=== PATIENT | female | born 1990 | race American Indian/Alaskan Native ===

== ENCOUNTER 2016-08-19 10:44 | Emergency (ER) | payer MEDICAID ==
[2016-08-19] MEDS ORDERED: CATAPRES PO ONE (15:17)
[2016-08-19] MEDS ORDERED: TORADOL IM ONE (15:17)
--- NOTE | 2016-08-19 17:08 | Emergency Department Report ---
HPI - General Chief Complaint: Dental/Oral Time Seen by Provider: 08/19/16 15:04 - HPI HPI: 26-year-old female presents today with right upper gum swelling 2 days. Denies history of similar symptoms. Describes her pain as a 7 or 10 constant, throbbing pain. Patient states her gum pain is causing her to have a headache. Denies trying any medication for pain relief. Denies fever, chills, nausea, vomiting, chest pain, shortness of breath, abdominal pain, visual changes, dizziness, confusion. Patient has history of hypertension but is noncompliant with medication. Patient states she hasn't taken her medication for over a week. ED Past Medical Hx - Past Medical History Hx Hypertension: Yes - Surgical History Past Surgical History?: No - Social History Smoking Status: Current Every Day Smoker Substance Use Type: None - Medications Home Medications: Home Medications Medication Instructions Recorded Confirmed Last Taken Type Acetaminophen/Codeine [Tylenol #3] 1 tab PO Q6H PRN #12 tab 08/19/16 Unknown Rx Penicillin Vk [Veetids TAB] 500 mg PO QID #56 tablet 08/19/16 Unknown Rx amLODIPine [Norvasc] 5 mg PO DAILY #30 tab 08/19/16 Unknown Rx ED Review of Systems ROS: Stated complaint: SWELLING IN MOUTH Other details as noted in HPI Constitutional: denies: chills, fever, malaise Eyes: denies: eye pain ENT: dental pain. denies: ear pain, throat pain, congestion Respiratory: denies: cough, shortness of breath, wheezing Cardiovascular: denies: chest pain, palpitations Endocrine: no symptoms reported Gastrointestinal: denies: abdominal pain, nausea, vomiting Neurological: headache. denies: weakness Physical Exam - Physical Exam Vital Signs: Vital Signs 08/19/16 08/19/16 08/19/16 11:02 15:51 16:38 Temperature 99.2 F Pulse Rate 87 85 87 Respiratory 18 16 Rate Blood Pressure 159/118 161/119 Blood Pressure 162/108 [Right] O2 Sat by Pulse 99 Oximetry Physical Exam: GENERAL: The patient is well-developed and well-nourished. Patient is in NAD. HEAD: Normocephalic. Atraumatic. EYES: PERRL. EARS: External auditory canals and tympanic membranes clear; hearing grossly intact. NOSE: Normal nasal mucosa with no nasal discharge. THROAT: No erythema, swelling or exudates. DENTAL: A small draining abscess noted over the gum of tooth #7. Positive for tooth caries. NECK: Supple, nontender, without lymphadenopathy. CHEST/LUNGS: Clear to auscultation throughout. HEART/CARDIOVASCULAR: Regular rate and rhythm. No murmurs, rubs or gallops. ABDOMEN: Abdomen is soft, nontender. No guarding or rebound tenderness. EXTREMITIES: Peripheral pulses intact. Capillary refill less than 2 seconds. ED Course Vital Signs 08/19/16 08/19/16 08/19/16 11:02 15:51 16:38 Temperature 99.2 F Pulse Rate 87 85 87 Respiratory 18 16 Rate Blood Pressure 159/118 161/119 Blood Pressure 162/108 [Right] O2 Sat by Pulse 99 Oximetry ED Medical Decision Making - Lab Data Vital Signs 08/19/16 08/19/16 08/19/16 11:02 15:51 16:38 Temperature 99.2 F Pulse Rate 87 85 87 Respiratory 18 16 Rate Blood Pressure 159/118 161/119 Blood Pressure 162/108 [Right] O2 Sat by Pulse 99 Oximetry 08/19/16 17:32 Temperature Pulse Rate 76 Respiratory 16 Rate Blood Pressure Blood Pressure 139/99 [Right] O2 Sat by Pulse Oximetry - Medical Decision Making 26-year-old female presents today with right gum swelling/pain and elevated blood pressure. Patient was given clonidine to lower her blood pressure and will be sent home on Norvasc. Patient is recommended to follow up with her primary care provider. Explained to patient that uncontrolled hypertension may lead to heart attack, stroke and even . Patient is in no acute distress at this time. She will be discharged home and is encouraged to follow up with a primary care provider and dentist. She will be sent home on penicillin VK, Tylenol 3 and Norvasc and is encouraged to return to the emergency room for any worsening symptoms. Critical care attestation.: If time is entered above; I have spent that time in minutes in the direct care of this critically ill patient, excluding procedure time. ED Disposition Clinical Impression: Tooth abscess Disposition: DISCHARGED TO HOME OR SELFCARE Is pt being admited?: No Does the pt Need Aspirin: No Condition: Stable Instructions: Dental Abscess (ED) Additional Instructions: Follow-up with primary care provider and dentist. Return to the emergency department if his symptoms worsen. Prescriptions: Acetaminophen/Codeine [Tylenol #3] 1 tab PO Q6H PRN #12 tab PRN Reason: Pain amLODIPine [Norvasc] 5 mg PO DAILY #30 tab Penicillin Vk [Veetids TAB] 500 mg PO QID #56 tablet Referrals: PRIMARY CARE,MD [Primary Care Provider] - 3-5 Days [facility] [Outside] - 3-5 Days [facility] [Outside] - 3-5 Days [facility] [Outside] - 3-5 Days Forms: Work/School Release Form(ED) Time of Disposition: 17:40
[2016-08-19 17:32] VITALS: BP 139/99
== END 2016-08-19 17:54 | disposition home or self-care (01) ==
LOC: ED 10:44
DX: K04.7 Periapical abscess without sinus (principal); I10 Essential (primary) hypertension; F17.200 Nicotine dependence, unspecified, uncomplicated
CPT/HCPCS: 96372; 99282; J1885

== ENCOUNTER 2017-01-03 12:19 | Emergency (ER) | payer MEDICAID ==
[2017-01-03] MEDS ORDERED: APRESOLINE IV ONE (13:04)
[2017-01-03] MEDS ORDERED: VALIUM IV ONE (13:04)
[2017-01-03 13:45] LABS: Anion Gap 17 mmol/L; BUN/Creatinine Ratio 6.66; Blood Urea Nitrogen 6 mg/dL (7-17); Calcium 9.1 mg/dL (8.4-10.2); Carbon Dioxide 24 mmol/L (22-30); Chloride 102.1 mmol/L (98-107); Glucose 84 mg/dL (65-100); Potassium 3.6 mmol/L (3.6-5.0); Sodium 139 mmol/L (137-145)
[2017-01-03 13:47] LABS: Basophils % (Auto) 0.6 % (0.0-1.8); Eosinophils % (Auto) 2.1 % (0.0-4.3); Hematocrit 42.8 % (30.3-42.9); Hemoglobin 13.9 gm/dl (10.1-14.3); Mean Corpuscular HGB Conc 32 % (30-34); Mean Corpuscular Hemoglobin 29 pg (28-32); Mean Corpuscular Volume 90 fl (79-97); Platelet Count 214 K/mm3 (140-440); Red Blood Count 4.73 M/mm3 (3.65-5.03); Red Cell Distribution Width 13.4 % (13.2-15.2); White Blood Count 10.2 K/mm3 (4.5-11.0)
[2017-01-03] MEDS ORDERED: TORADOL IV ONE (14:00)
[2017-01-03] MEDS ORDERED: NORMODYNE IV ONE (14:00)
--- NOTE | 2017-01-03 14:13 | Emergency Department Report ---
HPI - General Chief Complaint: High BP Time Seen by Provider: 01/03/17 13:00 - HPI HPI: This is a 26-year-old Afro[place] female presents to the emergency department from a urgent care clinic with complaint of severely elevated blood pressure. The patient went to the urgent care clinic originally for a 2 day history of left-sided lateral neck discomfort where she feels like she has a stiff neck and is unable to turn her head only to the left. However when she got there she had a systolic blood pressure was 200. The patient does have a history of hypertension and says she is on 3 different medications as they are "trying to find something that works." She denies any headache, vision change, slurred speech, chest pain, nausea, vomiting or diaphoresis. She has a primary care doctor but has not seen them regarding the symptoms. ED Past Medical Hx - Past Medical History Hx Hypertension: Yes - Social History Smoking Status: Light Tobacco Smoker Substance Use Type: None - Medications Home Medications: Home Medications Medication Instructions Recorded Confirmed Last Taken Type Acetaminophen/Codeine [Tylenol #3] 1 tab PO Q6H PRN #12 tab 08/19/16 Unknown Rx Penicillin Vk [Veetids TAB] 500 mg PO QID #56 tablet 08/19/16 Unknown Rx amLODIPine [Norvasc] 5 mg PO DAILY #30 tab 08/19/16 Unknown Rx ED Review of Systems ROS: Stated complaint: BP HIGH/FRIAS Other details as noted in HPI Comment: All other systems reviewed and negative Constitutional: denies: chills, fever Eyes: denies: eye pain, eye discharge, vision change ENT: denies: ear pain, throat pain Respiratory: denies: cough, shortness of breath, wheezing Cardiovascular: denies: chest pain, palpitations Genitourinary: denies: urgency, dysuria, discharge Musculoskeletal: denies: back pain, joint swelling Skin: denies: rash, lesions Neurological: denies: headache, weakness, paresthesias Physical Exam - Physical Exam Vital Signs: Vital Signs 01/03/17 01/03/17 01/03/17 12:32 12:40 12:45 Temperature 98.4 F Pulse Rate 87 73 Respiratory 13 13 9 L Rate Blood Pressure 194/127 211/145 O2 Sat by Pulse 100 100 99 Oximetry 06/03/17 06/03/17 06/03/17 13:00 13:16 13:30 Temperature Pulse Rate 69 67 93 H Respiratory 11 L 13 13 Rate Blood Pressure 201/138 181/122 174/112 O2 Sat by Pulse 97 95 Oximetry 01/03/17 01/03/17 01/03/17 13:31 13:45 14:05 Temperature Pulse Rate 87 101 H Respiratory 13 13 Rate Blood Pressure 194/127 199/110 O2 Sat by Pulse 97 Oximetry 01/03/17 14:07 Temperature Pulse Rate 101 H Respiratory Rate Blood Pressure 199/110 O2 Sat by Pulse Oximetry Physical Exam: GENERAL: The patient is well-developed well-nourished. HEENT: Normocephalic. Atraumatic. Extraocular motions are intact. Patient has moist mucous membranes. Pupils equal reactive to light bilaterally. No nystagmus. NECK: Supple. Trachea is midline. There is some reproducible left lateral cervical muscle tenderness but no obvious deformity. No midline tenderness or deformity or step-off. Patient has some restriction to left-sided rotation secondary to some discomfort. Full right-sided rotation without any difficulty. No problems with flexion or extension of the head and/or neck. CHEST/LUNGS: Clear to auscultation. There is no respiratory distress noted. HEART/CARDIOVASCULAR: Regular. There is no tachycardia. There is no gallop rub or murmur. ABDOMEN: Abdomen is soft, nontender. Patient has normal bowel sounds. There is no abdominal distention. SKIN: Skin is warm and dry. NEURO: The patient is awake, alert, and oriented. The patient is cooperative. The patient has no focal neurologic deficits. The patient has normal speech. MUSCULOSKELETAL: There is no tenderness or deformity. There is no limitation range of motion. There is no evidence of acute injury. ED Course Vital Signs 01/03/17 01/03/17 01/03/17 12:32 12:40 12:45 Temperature 98.4 F Pulse Rate 87 73 Respiratory 13 13 9 L Rate Blood Pressure 194/127 211/145 O2 Sat by Pulse 100 100 99 Oximetry 01/03/17 01/03/17 01/03/17 13:00 13:16 13:30 Temperature Pulse Rate 69 67 93 H Respiratory 11 L 13 13 Rate Blood Pressure 201/138 181/122 174/112 O2 Sat by Pulse 97 95 Oximetry 01/03/17 01/03/17 01/03/17 13:31 13:45 14:05 Temperature Pulse Rate 87 101 H Respiratory 13 13 Rate Blood Pressure 194/127 199/110 O2 Sat by Pulse 97 Oximetry 01/03/17 14:07 Temperature Pulse Rate 101 H Respiratory Rate Blood Pressure 199/110 O2 Sat by Pulse Oximetry ED Medical Decision Making - Lab Data Result diagrams: 01/03/17 13:09 01/03/17 13:09 - Medical Decision Making 26-year-old female presents from urgent care with very elevated blood pressure. She originally went to urgent care due to some left-sided neck pain and basically what was a crick in the neck. She does not have any visible cervical swelling. She does not have any headache or any neurological deficits. The patient was given a dose of muscle relaxant as well as a dose of hydralazine and her blood pressure came down slightly. She was given 1 dose of labetalol and the blood pressure came down to a much more reasonable level. Patient's symptoms have improved. She appears safe for discharge home at this time. She will follow-up with her primary care doctor on Thursday for any changes in her blood pressure regiment. Until that time we discussed dietary changes and lifestyle changes including staying away from foods that are high in salt, caffeinated products and staying away from any tobacco abuse. She will return to the ER with any worsening of her symptoms or any acute distress. - Differential Diagnosis muscle spasm, muscle strain, hypertensive urgency, accelerated hypertension Critical Care Time: No Critical care attestation.: If time is entered above; I have spent that time in minutes in the direct care of this critically ill patient, excluding procedure time. ED Disposition Clinical Impression: Neck pain, Muscle spasm, Hypertensive urgency Disposition: DISCHARGED TO HOME OR SELFCARE Is pt being admited?: No Condition: Stable Instructions: Hypertension (ED), Muscle Spasm (ED) Additional Instructions: Please follow-up with your primary care doctor Thursday without fail. Please try to stay away from foods that are high in salt and caffeinated products to help with her blood pressure. Please stay away from any tobacco products. Keep a blood pressure log. Return to the emergency department with any worsening of your symptoms or any acute distress. Referrals: PRIMARY CARE, [Primary Care Provider] - 24 Hours Time of Disposition: 14:55
[2017-01-03 14:55] VITALS: BP 112/54
== END 2017-01-03 15:05 | disposition home or self-care (01) ==
LOC: ED 12:19
DX: M54.2 Cervicalgia (principal); M62.838 Other muscle spasm; I16.0 Hypertensive urgency; F17.200 Nicotine dependence, unspecified, uncomplicated; I10 Essential (primary) hypertension
CPT/HCPCS: 36415; 80048; 84703; 85025; 96374; 96375; 99283; J0360; J1885; J3360

== ENCOUNTER 2019-12-25 18:22 | Emergency (ER) | payer MEDICAID ==
[2019-12-25 19:01] LABS: Basophils # (Auto) 0.1 K/mm3 (0.0-0.1); Basophils % (Auto) 0.7 % (0.0-1.8); Eosinophils # (Auto) 0.4 K/mm3 (0.0-0.4); Eosinophils % (Auto) 3.4 % (0.0-4.3); Hematocrit 37.9 % (30.3-42.9); Hemoglobin 12.6 gm/dl (10.1-14.3); Lymphocytes # (Auto) 2.5 K/mm3 (1.2-5.4); Mean Corpuscular HGB Conc 33 % (30-34); Mean Corpuscular Volume 92 fl (79-97); Monocytes # (Auto) 0.6 K/mm3 (0.0-0.8); Monocytes % (Auto) 5.4 % (0.0-7.3); Platelet Count 233 K/mm3 (140-440); Red Blood Count 4.12 M/mm3 (3.65-5.03); Red Cell Distribution Width 14.4 % (13.2-15.2)
[2019-12-25 19:07] LABS: Bacteria,Urine 1+ /HPF (Negative); Bilirubin,Urine NEG (Negative); Blood,Urine MOD (Negative); Color,Urine Yellow (Yellow); Mucus,Urine FEW /HPF; Protein,Urine <15 mg/dL mg/dL (Negative); Urobilinogen,Urine < 2.0 mg/dL (<2.0); WBC,Urine < 1.0 /HPF (0.0-6.0)
[2019-12-25 19:21] LABS: Alanine Aminotransferase 8 units/L (7-56); Albumin 3.9 g/dL (3.9-5); BUN/Creatinine Ratio 16; Blood Urea Nitrogen 11 mg/dL (7-17); Calcium 9.4 mg/dL (8.4-10.2); Hemolysis Index 23
--- NOTE | 2019-12-25 20:32 | Emergency Department Report ---
ED N/V/D HPI - General Chief complaint: Nausea/Vomiting/Diarrhea Stated complaint: VOMIT 4DAYS Time Seen by Provider: 12/25/19 19:42 Source: patient Mode of arrival: Ambulatory Limitations: No Limitations - History of Present Illness Initial comments: 29-year-old obese Afro-[place] female with a past medical history of hypertension who is been noncompliant with her medications recently presents emergency department complaining of a two-week history of nausea and dementia. And no menstrual period Since November 28 presents to the ED with a suspicion of . States she has not taken a home test has minimal pain but unfortunate her blood pressure has been elevated reports no headache no dizziness no blurred vision no chest pain no palpitation no shortness of breath no lower extremity swelling Location: diffuse Radiation: none Severity: mild Improves with: none Worsens with: none Associated Symptoms: denies: chest pain, cough, diaphoresis, loss of appetite, malaise, nausea/vomiting, shortness of breath, syncope - Related Data Previous Rx's Medication Instructions Recorded Last Taken Type Acetaminophen/Codeine [Tylenol #3] 1 tab PO Q6H PRN #12 tab 08/19/16 Unknown Rx Penicillin Vk [Veetids TAB] 500 mg PO QID #56 tablet 08/19/16 Unknown Rx amLODIPine [Norvasc] 5 mg PO DAILY #30 tab 08/19/16 Unknown Rx Doxylamine Succinate/Vit B6 1 each PO TID #20 tablet. 12/25/19 Unknown Rx [Osman Dupont 10-10 mg Tablet] Allergies Allergy/AdvReac Type Severity Reaction Status Date / Time No Known Allergies Allergy Unverified 06/17/16 09:11 ED Review of Systems ROS: Stated complaint: VOMIT 4DAYS Other details as noted in HPI Comment: All other systems reviewed and negative ED Past Medical Hx - Past Medical History Previous Medical History?: Yes Hx Hypertension: Yes - Surgical History Past Surgical History?: No - Social History Smoking Status: Current Every Day Smoker Substance Use Type: None - Medications Home Medications: Home Medications Medication Instructions Recorded Confirmed Last Taken Type Acetaminophen/Codeine [Tylenol #3] 1 tab PO Q6H PRN #12 tab 08/19/16 Unknown Rx Penicillin Vk [Veetids TAB] 500 mg PO QID #56 tablet 08/19/16 Unknown Rx amLODIPine [Norvasc] 5 mg PO DAILY #30 tab 08/19/16 Unknown Rx Doxylamine Succinate/Vit B6 1 each PO TID #20 tablet. 12/25/19 Unknown Rx [Osman Dupont 10-10 mg Tablet] ED Physical Exam - General Limitations: No Limitations General appearance: alert, in no apparent distress - Head Head exam: Present: atraumatic, normocephalic - Eye Eye exam: Present: normal appearance, PERRL, EOMI Pupils: Present: normal accommodation - ENT ENT exam: Present: normal exam, normal orophraynx, mucous membranes moist - Neck Neck exam: Present: normal inspection, full ROM - Respiratory Respiratory exam: Present: normal lung sounds bilaterally. Absent: respiratory distress, wheezes, rales, chest wall tenderness, accessory muscle use, prolonged expiratory - Cardiovascular Cardiovascular Exam: Present: regular rate, normal rhythm. Absent: systolic murmur, diastolic murmur, rubs, gallop - GI/Abdominal GI/Abdominal exam: Present: soft, normal bowel sounds. Absent: distended, tenderness, hyperactive bowel sounds, hypoactive bowel sounds, organomegaly - Extremities Exam Extremities exam: Present: normal inspection, full ROM, normal capillary refill - Back Exam Back exam: Present: normal inspection. Absent: CVA tenderness (R), CVA tenderness (L) - Neurological Exam Neurological exam: Present: alert, oriented X3, CN II-XII intact, normal gait - Psychiatric Psychiatric exam: Present: normal affect, normal mood - Skin Skin exam: Present: warm, dry, intact, normal color. Absent: rash ED Course Vital Signs 12/25/19 12/25/19 12/25/19 18:27 19:47 20:45 Temperature 98.1 F 98.9 F Pulse Rate 82 77 67 Respiratory 15 18 Rate Blood Pressure 192/133 205/136 Blood Pressure 189/123 [Left] O2 Sat by Pulse 100 100 Oximetry ED Medical Decision Making - Lab Data Result diagrams: 12/25/19 18:50 12/25/19 18:50 - Radiology Data Radiology results: report reviewed Print Report Referring Physician:GREGORIO MOTAPatient Name:STEPHEN KINSEYPatient ID:[id number] of :[id number]:FemaleAccession:[id number] Date:[id number] Status:Finalized Findings [address] [address] Ultrasound Report Signed Patient: STEPHEN KINSEY MR#: [id number] : 1990 Acct:[id number] Age/Sex: 29 / F ADM Date: 12/25/19 Loc: ED Attending Dr: Ordering Physician: MICHELLE CASTELLON Date of Service: 12/25/19 Procedure(s): US OB transvaginal Accession Number(s): [id number] cc: MICHELLE CASTELLON ULTRASOUND OBSTETRIC INDICATION / CLINICAL INFORMATION: Vaginal bleeding pain. Clinical Gestational Age (GA): 3 weeks 5 days TECHNIQUE: Transabdominal and Transvaginal. COMPARISON: None available. FINDINGS: GESTATIONAL SAC: Well-defined oval shape and intrauterine in location. YOLK SAC: No significant abnormality. EMBRYO/FETUS: No significant abnormality. - [place]-Rump Length = 1.9 cm = 8 weeks, 3 day(s). - Heart Rate, beats per minute (if present) = 167 ADNEXA: No significant abnormality. FREE FLUID: None. ADDITIONAL FINDINGS: Internally anechoic cystic area apparently within the umbilical cord is noted, measuring 0.7 x 0.4 cm IMPRESSION: 1. Single, living intrauterine with estimated sonographic age of 8 weeks, 3 day(s). Cystic area within the umbilical cord is noted; at minimum, this area should be reevaluated [facility]. Signer Name: Tru Yancey MD Signed: 12/25/2019 8:34 PM Workstation Name: [id number] Transcribed By: DMB Dictated By: Tru Yancey MD Electronically Authenticated By: Tru Yancey MD Signed Date/Time: 12/25/192033 DD/ 30 TD/TT: Critical care attestation.: If time is entered above; I have spent that time in minutes in the direct care of this critically ill patient, excluding procedure time. ED Disposition Clinical Impression: HTN (hypertension), Elevated serum hCG, Nausea & vomiting Disposition: DC-01 TO HOME OR SELFCARE Is pt being admited?: No Does the pt Need Aspirin: No Instructions: Hypertension (ED), Hyperemesis Gravidarum (ED), (ED) Additional Instructions: Please be sure to follow-up with your [facility] for further evaluation and management of your Prescriptions: Doxylamine Succinate/Vit B6 [Osman Dupont 10-10 mg Tablet] 1 each PO TID #20 tablet. Referrals: [facility] [Provider Group] - 3-5 Days
--- NOTE | 2019-12-25 20:38 | Ultrasound Report ---
ULTRASOUND OBSTETRIC INDICATION / CLINICAL INFORMATION: Vaginal bleeding pain. Clinical Gestational Age (GA): 3 weeks 5 days TECHNIQUE: Transabdominal and Transvaginal. COMPARISON: None available. FINDINGS: GESTATIONAL SAC: Well-defined oval shape and intrauterine in location. YOLK SAC: No significant abnormality. EMBRYO/FETUS: No significant abnormality. - [place]-Rump Length = 1.9 cm = 8 weeks, 3 day(s). - Heart Rate, beats per minute (if present) = 167 ADNEXA: No significant abnormality. FREE FLUID: None. ADDITIONAL FINDINGS: Internally anechoic cystic area apparently within the umbilical cord is noted, m easuring 0.7 x 0.4 cm IMPRESSION: 1. Single, living intrauterine with estimated sonographic age of 8 weeks, 3 day(s). Cystic area within the umbilical cord is noted; at minimum, this area should be reevaluated at routine follo w-up ultrasound. Signer Name: Tru Yancey MD Signed: 12/25/2019 8:34 PM Workstation Name: [id number]
--- NOTE | 2019-12-25 20:38 | Ultrasound Report ---
ULTRASOUND OBSTETRIC INDICATION / CLINICAL INFORMATION: Vaginal bleeding pain. Clinical Gestational Age (GA): 3 weeks 5 days TECHNIQUE: Transabdominal and Transvaginal. COMPARISON: None available. FINDINGS: GESTATIONAL SAC: Well-defined oval shape and intrauterine in location. YOLK SAC: No significant abnormality. EMBRYO/FETUS: No significant abnormality. - [place]-Rump Length = 1.9 cm = 8 weeks, 3 day(s). - Heart Rate, beats per minute (if present) = 167 ADNEXA: No significant abnormality. FREE FLUID: None. ADDITIONAL FINDINGS: Internally anechoic cystic area apparently within the umbilical cord is noted, m easuring 0.7 x 0.4 cm IMPRESSION: 1. Single, living intrauterine with estimated sonographic age of 8 weeks, 3 day(s). Cystic area within the umbilical cord is noted; at minimum, this area should be reevaluated at routine follo w-up ultrasound. Signer Name: Tru Yancey MD Signed: 12/25/2019 8:34 PM Workstation Name: [id number]
[2019-12-25 21:53] VITALS: BP 173/128
== END 2019-12-25 21:53 | disposition home or self-care (01) ==
LOC: ED 18:22
DX: O21.8 Other vomiting complicating pregnancy (principal); O02.81 Inappropriate change in quantitative human chorionic gonadotropin (hCG) in early pregnancy; O16.1 Unspecified maternal hypertension, first trimester; F17.200 Nicotine dependence, unspecified, uncomplicated; Z3A.08 8 weeks gestation of pregnancy; Z79.2 Long term (current) use of antibiotics; Z79.899 Other long term (current) drug therapy
CPT/HCPCS: 36415; 76801; 76817; 80053; 81001; 83690; 84702; 85025

== ENCOUNTER 2019-12-27 12:55 | Emergency (ER) | payer MEDICAID ==
[2019-12-27] MEDS ORDERED: NIFEdipine XL 30 MG TAB PO ONE (16:05)
--- NOTE | 2019-12-27 16:12 | Emergency Department Report ---
ED General Adult HPI - General Chief complaint: High BP Stated complaint: BLOOD PRESSURE PUI?: No Time Seen by Provider: 12/27/19 15:46 Source: patient, RN notes reviewed, old records reviewed Mode of arrival: Ambulatory Limitations: No Limitations - History of Present Illness Initial comments: This is a 29-year-old female. She is not known to myself previously. She has a history of chronic hypertension since 2017. She is poorly and intermittently compliant with amlodipine. She is 2, para 1. She was seen in this emergency room 2 days ago for nonspecific symptoms. She was found to have chronic hypertension, urinalysis did not show any proteinuria, liver function tests appeared to be within normal limits, and she was found to have an intrauterine . Today, she was seen by her outpatient SERVICE LIAISON REPRESENTATIVE doctor, Dr. Dang; [phone], and was, for uncertain and an unclear reasons, sent to the emergency room for asymptomatic hypertension. The patient reports she did not take her antihypertensive therapy today. She denies all physical pain at this time. She had mild nausea earlier on today. There is no lower extremity edema. At the moment, she does not have any complaints, and she denies fever, cough, coronavirus. Improves with: none Worsens with: none Associated Symptoms: denies other symptoms - Related Data Previous Rx's Medication Instructions Recorded Last Taken Type Doxylamine Succinate/Vit B6 1 each PO TID #20 tablet. 12/25/19 Unknown Rx [Osman Dupont 10-10 mg Tablet] NIFEdipine XL [Procardia Xl] 30 mg PO QDAY #30 tablet 12/27/19 Unknown Rx Allergies Allergy/AdvReac Type Severity Reaction Status Date / Time No Known Allergies Allergy Verified 12/27/19 13:29 ED Review of Systems ROS: Stated complaint: BLOOD PRESSURE Other details as noted in HPI Constitutional: denies: fever Eyes: denies: eye discharge ENT: denies: congestion Respiratory: denies: wheezing Cardiovascular: denies: chest pain Gastrointestinal: abdominal pain, nausea Genitourinary: denies: dysuria Musculoskeletal: as per HPI. denies: back pain Skin: as per HPI Neurological: denies: weakness Psychiatric: as per HPI Hematological/Lymphatic: as per HPI ED Past Medical Hx - Past Medical History Previous Medical History?: Yes Hx Hypertension: Yes - Surgical History Past Surgical History?: No - Social History Smoking Status: Never Smoker Substance Use Type: None - Medications Home Medications: Home Medications Medication Instructions Recorded Confirmed Last Taken Type Doxylamine Succinate/Vit B6 1 each PO TID #20 tablet. 12/25/19 Unknown Rx [Osman Dupont 10-10 mg Tablet] NIFEdipine XL [Procardia Xl] 30 mg PO QDAY #30 tablet 12/27/19 Unknown Rx ED Physical Exam - General Limitations: No Limitations General appearance: alert, in no apparent distress - Head Head exam: Present: atraumatic, normocephalic - Eye Eye exam: Present: normal appearance, EOMI. Absent: nystagmus - ENT ENT exam: Present: normal exam, normal orophraynx, mucous membranes moist, normal external ear exam - Neck Neck exam: Present: normal inspection, full ROM. Absent: tenderness, meningismus - Respiratory Respiratory exam: Present: normal lung sounds bilaterally. Absent: respiratory distress - Cardiovascular Cardiovascular Exam: Present: regular rate, normal rhythm, normal heart sounds. Absent: bradycardia, tachycardia, irregular rhythm, systolic murmur, diastolic murmur, rubs, gallop - GI/Abdominal GI/Abdominal exam: Present: soft. Absent: distended, tenderness, guarding, rebound, rigid, pulsatile mass - Extremities Exam Extremities exam: Present: normal inspection, full ROM, other (2+ pulses noted in the bilateral upper and lower extremities. There is no palpable cord. negative Homans sign. Muscular compartments are soft. The pelvis is stable.). Absent: pedal edema, calf tenderness - Back Exam Back exam: Present: normal inspection, full ROM. Absent: tenderness, CVA tenderness (R), CVA tenderness (L), paraspinal tenderness, vertebral tenderness - Neurological Exam Neurological exam: Present: alert, oriented X3, normal gait, other (No facial droop. Tongue midline. Extraocular movements intact bilaterally. Facial sensation intact to light touch in V1, V2, V3 distribution bilaterally. 5 and a 5 strength in 4 extremities. Sensation intact to light touch in 4 extremities.). Absent: motor sensory deficit - Psychiatric Psychiatric exam: Present: normal affect, normal mood - Skin Skin exam: Present: warm, dry, intact, normal color. Absent: rash ED Course Vital Signs 12/27/19 13:27 Temperature 98.1 F Pulse Rate 81 Respiratory 19 Rate Blood Pressure 189/120 O2 Sat by Pulse 100 Oximetry ED Medical Decision Making - Lab Data Vital Signs 12/27/19 13:27 Temperature 98.1 F Pulse Rate 81 Respiratory 19 Rate Blood Pressure 189/120 O2 Sat by Pulse 100 Oximetry - Radiology Data Radiology results: report reviewed, image reviewed Ultrasound from 2 days ago is reviewed and and appreciate - Medical Decision Making Differential diagnosis, including but not limited to: Chronic hypertension, , noncompliance Assessment and plan: 29-year-old female with known hypertension, documented at this hospital since 2017. She is afebrile, with reassuring vital signs, and no acute distress at this time, with the exception of hypertension, with a blood pressure of 177/109. From a gestational perspective, her history, physical, laboratory studies and imaging studies are not consistent with preeclampsia. We will discontinue her amlodipine, and initiate nifedipine. As a courtesy, we paged out to her private SERVICE LIAISON REPRESENTATIVE doctor, Dr. Dang, to discuss her previous laboratory studies, ultrasound findings, and physical exam findings, as well as chronic hypertension, however, we were not able to reach Sim Dang on the telephone. However, this phone call is a courtesy phone call, and for my purposes, I do not require an emergent obstetrics consultation for her chronic hypertension. We will discontinue amlodipine, and initiate nifedipine. Counseled patient that she would need to closely follow-up with her outpatient SERVICE LIAISON REPRESENTATIVE doctor, and depending on their preference, continue to follow-up with them, or consult with outpatient highway maintenance technician. I will defer to her SERVICE LIAISON REPRESENTATIVE to make that recommendation. Please reference the [employer] clinical policy on chronic asymptomatic hypertension. Patient also given copies of her laboratory studies, ultrasound to take with her for recordkeeping. I informed the patient that I would be very happy to speak to her SERVICE LIAISON REPRESENTATIVE physician if Dr. Dang elects to call me back. Critical care attestation.: If time is entered above; I have spent that time in minutes in the direct care of this critically ill patient, excluding procedure time. ED Disposition Clinical Impression: Elevated blood pressure reading, Incidental Disposition: - TO HOME OR SELFCARE Is pt being admited?: No Does the pt Need Aspirin: No Condition: Stable Additional Instructions: Discontinue amlodipine medication. Instead, initiate nifedipine medication as prescribed. Follow-up within 3 to 5 days with your outpatient SERVICE LIAISON REPRESENTATIVE doctor for repeat blood pressure check and evaluation. Avoid consumption of stimulants, caffeine, energy drinks. Avoid consumption of caffeine, Coca-Cola, tea, and coffee. Do not take Motrin, ibuprofen, Naprosyn, Aleve. Avoid consumption of heavy and/or spicy food. It is very important to closely follow-up with your outpatient SERVICE LIAISON REPRESENTATIVE doctor, or primary care doctor to monitor blood pressure. Hypertension in does put the patient at risk for complications, including preeclampsia, which may lead to disability, paralysis, loss of quality of life, or in extreme situations, or termination of the . Your SERVICE LIAISON REPRESENTATIVE doctor may elect to gradually increase your antihypertensive medication. Please return to the emergency room right away with new pain, worsened pain, migration of pain, projectile vomiting, change in mental status, confusion, inability to tolerate liquid feeds, new, worsened or different symptoms not present on the initial emergency room evaluation. Referrals: [facility] [Provider Group] - 3-5 Days [facility] [Provider Group] - 3-5 Days [facility]PRESENTAT[facility] [Provider Group] - 3-5 Days
[2019-12-27 16:32] VITALS: BP 193/134
== END 2019-12-27 17:02 | disposition home or self-care (01) ==
LOC: ED 12:55
DX: I10 Essential (primary) hypertension (principal); Z33.1 Pregnant state, incidental; Z79.899 Other long term (current) drug therapy
CPT/HCPCS: 99282

== ENCOUNTER 2020-01-31 08:58 | Emergency (ER) | payer MEDICAID ==
--- NOTE | 2020-01-31 10:42 | Event Note ---
ED Screening Note ED Screening Note: 14 WEEKS PREG RLQ PAIN NO DYSURIA NO DC NO BLEEDING ALSO, CO CHEST PAIN ST CAREY This initial assessment/diagnostic orders/clinical plan/treatment(s) is/are subject to change based on patients health status, clinical progression and re- assessment by fellow clinical providers in the ED. Further treatment and workup at subsequent clinical providers discretion. Patient/guardian urged not to elope from the ED as their condition may be serious if not clinically assessed and managed. Initial orders include: ACC
[2020-01-31 11:15] LABS: Bilirubin,Urine NEG (Negative); Blood,Urine MOD (Negative); Color,Urine Yellow (Yellow); Mucus,Urine 1+ /HPF; Protein,Urine <15 mg/dL mg/dL (Negative); Urobilinogen,Urine < 2.0 mg/dL (<2.0)
--- NOTE | 2020-01-31 11:31 | Emergency Department Report ---
ED Female HPI - General Chief complaint: Abdominal Pain Stated complaint: CHEST PAIN Time Seen by Provider: 01/31/20 10:40 Source: patient Mode of arrival: Ambulatory Limitations: No Limitations - History of Present Illness Initial comments: 30-year-old female with no significant past medical history who is currently 14 weeks presents to the ER today complaining of lower abdominal pain and chest pain. Patient states that around 5 AM this morning she started with intermittent lower cramping abdominal pain. Patient reports that she has no ticed that for the past 2 days she has not noticed much movement and with the abdominal pain this morning she became concerned. She denies any abdominal pain currently. She states that she did call the DURABLE MEDICAL EQUIPMENT REPAIRER yesterday but they did not return her call and so she decided to come here to get it evaluated. Patient states that she also woke up at 5 AM this morning with diffuse anterior chest pain which she describes as a burning/sharp pain. She states that it was mild and only lasted a few minutes. She denies any pain currently. She denied any associated shortness of breath, cough or wheezing. She states her mom told her it likely could be reflux which she has had during her but she states she did not know what to take for it. She denies any nausea, vomiting, fever, chills, calf pain or leg swelling. She denies any abnormal vaginal discharge, UTI symptoms or any abnormal vaginal bleeding. She is . Complaint: pelvic pain -: Sudden (today ) - Related Data Previous Rx's Medication Instructions Recorded Last Taken Type Doxylamine Succinate/Vit B6 1 each PO TID #20 tablet. 12/25/19 Unknown Rx [Osman Dupont 10-10 mg Tablet] NIFEdipine XL [Procardia Xl] 30 mg PO QDAY #30 tablet 12/27/19 Unknown Rx Allergies Allergy/AdvReac Type Severity Reaction Status Date / Time No Known Allergies Allergy Verified 12/27/19 13:29 ED Review of Systems ROS: Stated complaint: CHEST PAIN Other details as noted in HPI Comment: All other systems reviewed and negative Constitutional: denies: chills, fever Respiratory: denies: cough, shortness of breath, wheezing Cardiovascular: chest pain. denies: palpitations Gastrointestinal: abdominal pain. denies: nausea, diarrhea Genitourinary: denies: urgency, dysuria, discharge Musculoskeletal: denies: back pain, joint swelling, arthralgia Skin: denies: rash, lesions Neurological: denies: headache, weakness, paresthesias Psychiatric: denies: anxiety, depression ED Past Medical Hx - Past Medical History Previous Medical History?: Yes Hx Hypertension: Yes - Surgical History Past Surgical History?: No - Social History Smoking Status: Never Smoker Substance Use Type: None - Medications Home Medications: Home Medications Medication Instructions Recorded Confirmed Last Taken Type Doxylamine Succinate/Vit B6 1 each PO TID #20 tablet. 12/25/19 Unknown Rx [Diclegis Dr 10-10 mg Tablet] NIFEdipine XL [Procardia Xl] 30 mg PO QDAY #30 tablet 12/27/19 Unknown Rx ED Physical Exam - General Limitations: No Limitations General appearance: alert, in no apparent distress - Head Head exam: Present: atraumatic, normocephalic, normal inspection - Respiratory Respiratory exam: Present: normal lung sounds bilaterally. Absent: respiratory distress, wheezes, rales - Cardiovascular Cardiovascular Exam: Present: regular rate, normal rhythm, normal heart sounds - GI/Abdominal GI/Abdominal exam: Present: soft, distended (consistent with gravid abdomen), tenderness. Absent: guarding, rebound - Extremities Exam Extremities exam: Present: normal inspection. Absent: full ROM, tenderness, pedal edema, calf tenderness - Neurological Exam Neurological exam: Present: alert, oriented X3, CN II-XII intact - Psychiatric Psychiatric exam: Present: normal affect, normal mood - Skin Skin exam: Present: intact ED Course Vital Signs 01/31/20 09:02 Temperature 98.5 F Pulse Rate 100 H Respiratory 16 Rate Blood Pressure 139/69 O2 Sat by Pulse 99 Oximetry ED Medical Decision Making - EKG Data EKG shows normal: sinus rhythm Rate: normal (82) - EKG Data Interpretation: no acute changes, normal EKG - Radiology Data Radiology results: report reviewed - Medical Decision Making Patient who is currently 14 weeks presented to the ER today complaining of chest pain and lower abdominal pain. Patient reported that around 5 AM this morning she started with is burning sharp chest pain which lasted only a brief period of time without any associated shortness of breath, dizziness lightheadedness or syncope or cough. She also has no calf swelling or calf pain. She wanted to try something for indigestion but did not know what to take. She also had intermittent abdominal pain this morning which had resolved by the time she got to the ER. Patient states that she has not been feeling the baby move for the past 2 days and so the main reason she came to the ER was because she was concerned about that. She had called her D[facility]ABLE MEDICAL EQUIPMENT REPAIRER but was not hearing from them. She reported no vaginal symptoms or UTI symptoms. Patient is well-appearing, nontoxic, she is not in any acute distress. She has a soft nontender abdomen. EKG reviewed and is normal. Her vital signs are also within normal limits. Patient without any chest pain or abdominal pain at this time. Ultrasound reviewed, reassured patient that her is progressing along normally. I suspect her chest burining from this morning is probably reflux related. She is not tachycardia hypoxic or tachypneic. She has no calf pain or or swelling. Very low suspicion for ACS or PE at this time. I did discu ss results with patient. Discussed suspected dx and treatment plan with her. But informed her that if her symptoms worsened to return to ED immediately. Critical care attestation.: If time is entered above; I have spent that time in minutes in the direct care of this critically ill patient, excluding procedure time. ED Disposition Clinical Impression: 14 weeks gestation of , Abdominal pain during in second trimester, Atypical chest pain Disposition: DC-01 TO HOME OR SELFCARE Is pt being admited?: No Does the pt Need Aspirin: No Condition: Stable Instructions: Chest Pain (ED), Gastroesophageal Reflux Disease (ED), Abdominal Pain (ED) Additional Instructions: I recommend you follow-up with your DURABLE MEDICAL EQUIPMENT REPAIRER as scheduled. You can take Tylenol if your pain recurs. I recommend that you take Tums which can help with any reflux or indigestion. If your abdominal pain worsens and you start having any bleeding or abnormal discharge or passage of tissue or if your chest pain starts again and is worse with associated shortness of breath, dizziness, or syncope return to the ER. Referrals: PRIMARY CARE, [Primary Care Provider] - 3-5 Days Time of Disposition: 13:53
--- NOTE | 2020-01-31 13:33 | Ultrasound Report ---
ULTRASOUND OB LESS THAN 14 WEEKS FETUS HISTORY: Lower abdominal pain, no movement TECHNIQUE: Transabdominal ultrasound COMPARISON: 12/25/2019 FINDINGS: A single intrauterine is identified in cephalic position. heart rate measures 148 bpm . The placenta is anterior, grade 0. Amniotic fluid volume appears within normal limits. biometry measurements correlate with a 14 week 0 day . No acute abnormality is detected. IMPRESSION: Viable single intrauterine as described. Signer Name: Dane Barbour Jr, MD Signed: 01/31/2020 1:28 PM Workstation Name: [id number]
[2020-01-31 14:04] VITALS: BP 162/119
== END 2020-01-31 14:04 | disposition home or self-care (01) ==
LOC: ED 08:58
DX: O26.891 Other specified pregnancy related conditions, first trimester (principal); R10.30 Lower abdominal pain, unspecified; R07.89 Other chest pain; I10 Essential (primary) hypertension; Z79.899 Other long term (current) drug therapy; Z3A.14 14 weeks gestation of pregnancy
CPT/HCPCS: 76801; 76805; 81001; 93005

== ENCOUNTER 2020-05-02 16:45 | Outpatient (CLI) | payer MEDICAID ==
[2020-05-02] MEDS ORDERED: LACTATED RINGERS 1,000 ML IV SCH (19:00)
[2020-05-02 19:33] VITALS: BP 127/83
[2020-05-02 19:38] LABS: Bacteria,Urine 1+ /HPF (Negative); Bilirubin,Urine NEG (Negative); Blood,Urine SM (Negative); Color,Urine Straw (Yellow); Protein,Urine <15 mg/dL mg/dL (Negative); Urobilinogen,Urine < 2.0 mg/dL (<2.0)
[2020-05-02] MEDS ORDERED: LIDOCAINE-MPF (1%) 10 MG/1 ML VIAL 5 ML INFILTRATI ONE (19:50)
[2020-05-02 23:37] LABS: Bacteria,Urine 1+ /HPF (Negative); Bilirubin,Urine NEG (Negative); Blood,Urine SM (Negative); Color,Urine Yellow (Yellow); Protein,Urine <15 mg/dL mg/dL (Negative); Urobilinogen,Urine < 2.0 mg/dL (<2.0)
== END 2020-05-02 20:19 | disposition home or self-care (01) ==
LOC: APU 16:45 → TRG 16:45
PROVIDERS: ATTEND Obstetrics & Gynecology
DX: O26.892 Other specified pregnancy related conditions, second trimester (principal); R10.9 Unspecified abdominal pain; O10.012 Pre-existing essential hypertension complicating pregnancy, second trimester; Z3A.27 27 weeks gestation of pregnancy; Z87.891 Personal history of nicotine dependence
CPT/HCPCS: 81001; 96372; J0696

== ENCOUNTER 2020-05-15 07:24 | Outpatient (CLI) | payer MEDICAID ==
[2020-05-15] MEDS ORDERED: LACTATED RINGERS 500 ML IV ONE (10:07)
[2020-05-15 10:10] VITALS: BP 133/92
[2020-05-15 10:38] LABS: Bilirubin,Urine NEG (Negative); Blood,Urine SM (Negative); Color,Urine Yellow (Yellow); Mucus,Urine FEW /HPF; Protein,Urine <15 mg/dL mg/dL (Negative); Urobilinogen,Urine < 2.0 mg/dL (<2.0)
== END 2020-05-15 10:55 | disposition home or self-care (01) ==
LOC: APU 07:24 → TRG 07:24
PROVIDERS: ATTEND Obstetrics & Gynecology
DX: O26.893 Other specified pregnancy related conditions, third trimester (principal); R10.30 Lower abdominal pain, unspecified; Z3A.29 29 weeks gestation of pregnancy
CPT/HCPCS: 59025; 81001

== ENCOUNTER 2020-06-08 11:36 | Outpatient (CLI) | payer MEDICAID ==
[2020-06-08 12:41] LABS: Bilirubin,Urine NEG (Negative); Blood,Urine SM (Negative); Color,Urine Yellow (Yellow); Mucus,Urine FEW /HPF
[2020-06-08] MEDS ORDERED: LACTATED RINGERS 1,000 ML IV SCH (13:00)
[2020-06-08 13:08] VITALS: BP 118/84
== END 2020-06-08 13:20 | disposition home or self-care (01) ==
LOC: TRG 11:36 → APU 11:37 → TRG 13:20
PROVIDERS: ATTEND Obstetrics & Gynecology
DX: O26.893 Other specified pregnancy related conditions, third trimester (principal); R10.9 Unspecified abdominal pain; Z3A.32 32 weeks gestation of pregnancy
CPT/HCPCS: 59025; 81001

== ENCOUNTER 2020-06-15 14:21 | Outpatient (CLI) | payer MEDICAID ==
[2020-06-15 17:14] LABS: Hematocrit 33.4 % (30.3-42.9); Hemoglobin 11.2 gm/dl (10.1-14.3); Mean Corpuscular HGB Conc 34 % (30-34); Mean Corpuscular Volume 89 fl (79-97); Platelet Count 200 K/mm3 (140-440); Red Blood Count 3.73 M/mm3 (3.65-5.03); Red Cell Distribution Width 13.6 % (13.2-15.2)
[2020-06-15 17:19] LABS: Alanine Aminotransferase 82 units/L (7-56)
[2020-06-15 17:24] LABS: Bilirubin,Urine NEG (Negative); Blood,Urine SM (Negative); Color,Urine Yellow (Yellow); Mucus,Urine 3+ /HPF
[2020-06-15] MEDS ORDERED: ACETAMINOPHEN 500 MG TAB PO ONE (17:50)
[2020-06-15 18:45] VITALS: BP 134/94
== END 2020-06-15 19:18 | disposition home or self-care (01) ==
LOC: TRG 14:21 → APU 14:25 → TRG 19:18
PROVIDERS: ATTEND Obstetrics & Gynecology
DX: O13.3 Gestational [pregnancy-induced] hypertension without significant proteinuria, third trimester (principal); Z3A.33 33 weeks gestation of pregnancy
CPT/HCPCS: 36415; 59025; 81001; 82565; 83615; 84450; 84460; 84550; 85027; 87086

== ENCOUNTER 2020-07-09 19:36 | Inpatient (IN) | payer MEDICAID ==
[2020-07-09] MEDS ORDERED: ONDANSETRON 4 MG/2 ML INJ IV PRN (21:17)
[2020-07-09] MEDS ORDERED: BUTORPHANOL 2 MG/1 ML INJ IV PRN (21:17)
[2020-07-09] MEDS ORDERED: DINOPROSTONE 10 MG VAG SUPP VG ONE (21:17)
[2020-07-09] MEDS ORDERED: TERBUTALINE 1 MG/1 ML INJ SUB-Q PRN (21:17)
[2020-07-09] MEDS ORDERED: MINERAL OIL 30 ML ORAL LIQD PO PRN (21:17)
[2020-07-09] MEDS ORDERED: ePHEDrine SULFATE 50 MG/1 ML INJ IV PRN (21:17)
[2020-07-09] MEDS ORDERED: LIDOCAINE (2%) 20 MG/1 ML VIAL 20 ML MDV INFILTRATI ONE (21:17)
[2020-07-09 21:47] LABS: Hematocrit 33.7 % (30.3-42.9); Hemoglobin 11.3 gm/dl (10.1-14.3); Mean Corpuscular HGB Conc 33 % (30-34); Mean Corpuscular Volume 89 fl (79-97); Platelet Count 205 K/mm3 (140-440); Red Blood Count 3.79 M/mm3 (3.65-5.03); Red Cell Distribution Width 13.7 % (13.2-15.2)
[2020-07-09] MEDS: LACTATED RINGERS 1,000 ML IV SCH (21:55)
[2020-07-09] MEDS ORDERED: OXYTOCIN DRIP 30 UNITS/500 ML BAG IV SCH ×2 (22:00)
[2020-07-09 22:04] LABS: Alanine Aminotransferase 31 units/L (7-56); Uric Acid 4.3 mg/dL (3.5-7.6)
[2020-07-10] MEDS: LACTATED RINGERS 1,000 ML IV SCH ×3 (05:58→21:54)
--- NOTE | 2020-07-10 08:39 | History and Physical Report ---
History of Present Illness Date of examination: 07/10/20 Date of admission: 07/09/20 19:36 Chief complaint: Scheduled Induction of Labor History of present illness: Pt is a 30 year old -[place] ANG[place] 07/30/20 at 37w1d who presents for scheduled induction of labor secondary to chronic hypertension on labetalol 100 mg BID. She denies contractions, vaginal bleeding or leakage of fluid. She has had care at [facility] since 13 wks complicated by chronic hypertension, EIF, genital herpes without lesion or prodrome. She is GBS Negative. Pt received cervidil overnight. 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 Family/Genetic History: diabetes, hypertension Social history: no significant social history - Obstetrical History Expected Date of Delivery: 07/30/20 Actual Gestation: 37 Week(s) 1 Day(s) : 2 Para: 1 Hx # Term Pregnancies: 1 Number of Pregnancies: 0 Spontaneous Abortions: 0 Induced : 0 Number of Living Children: 1 Medications and Allergies Allergies Allergy/AdvReac Type Severity Reaction Status Date / Time No Known Allergies Allergy Verified 05/02/20 17:29 Home Medications Medication Instructions Recorded Confirmed Last Taken Type Labetalol 100mg TAB 100 mg PO DAILY 07/09/20 07/09/20 07/09/20 17:00 History 1 Active Meds: Active Medications Butorphanol Tartrate (Stadol) 2 mg IV Q2H PRN PRN Reason: Pain , Severe (7-10) Ephedrine Sulfate (Ephedrine Sulfate) 10 mg IV Q2M PRN PRN Reason: Hypotension Fentanyl (Sublimaze) 100 mcg IV Q2H PRN PRN Reason: Pain,Severe (7-10) LABOR PAIN Oxytocin/Sodium Chloride (Pitocin/Ns 30 Unit/500ml) 30 units in 500 mls @ 2 mls/hr IV TITR MARIA L; Protocol Lactated Ringer's (Lactated Ringers) 1,000 mls @ 125 mls/hr IV DIRECT MARIA L Last Admin: 07/10/20 05:58 Dose: 125 mls/hr Documented by: Oxytocin/Sodium Chloride (Pitocin/Ns 30 Unit/500ml) 30 units in 500 mls @ 40 mls/hr IV TITR MARIA L; Protocol Labetalol HCl (Labetalol) 100 mg PO DAILY MARIA L Mineral Oil (Mineral Oil) 30 ml PO QHS PRN PRN Reason: Constipation Ondansetron HCl (Zofran) 4 mg IV Q8H PRN PRN Reason: Nausea And Vomiting Terbutaline Sulfate (Brethine) 0.25 mg SUB-Q ONCE PRN PRN Reason: Hyperstimulation/Hypertonicity Review of Systems All systems: negative - Vital Signs Vital signs: Vital Signs Temp Pulse Resp BP 98.1 F 99 H 17 149/91 07/09/20 19:57 07/09/20 19:57 07/09/20 19:57 07/09/20 19:57 Temp Pulse Resp BP Pulse Ox 98.2 F 77 16 126/87 99 07/10/20 07:02 07/10/20 08:32 07/10/20 07:02 07/10/20 08:28 07/10/20 08:32 - Physical Exam Breasts: Positive: deferred Abdomen: Positive: soft (obese, gravid ) Genitourinary (Female): Positive: normal external genitalia Uterus: Positive: enlarged (gravid ) Extremities: Positive: normal - Obstetrical FHR: auscultation normal Uterine Contraction Monitor Mode: External Cervical Dilatation: 0 (per RN on admission ) Uterine Contraction Pattern: Absent Uterine Tone Measurement Phase: Resting Results Result Diagrams: 07/09/20 20:40 07/09/20 20:40 Abnormal lab results 07/09/20 07/09/20 Range/Units 20:40 20:40 WBC 12.1 H (4.5-11.0) K/mm3 Lactate Dehydrogenase 200 H (91-180) units/L All other labs normal. Assessment and Plan A: IUP at 37w1d Chronic Hypertension on Labetalol 100 mg PO BID Genital Herpes without lesion or prodrome GBS Negative P: Admit to labor and delivery Continue cervical ripening Closely monitor maternal and status
[2020-07-10] MEDS: valACYclovir 500 MG TAB PO SCH (09:12)
[2020-07-10] MEDS ORDERED: DINOPROSTONE 10 MG VAG SUPP VG ONE (13:03)
[2020-07-10] MEDS: fentaNYL 100 MCG/2 ML INJ IV PRN (17:11)
[2020-07-11] MEDS: miSOPROStol 25 MCG TAB VG PRN ×3 (04:04→12:11)
[2020-07-11] MEDS: LACTATED RINGERS 1,000 ML IV SCH ×3 (05:43→14:58)
--- NOTE | 2020-07-11 08:09 | Progress Note ---
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 S/p Cervidil x2 and Cytotec 25mcg x1. Cervix remains unfavorable for induction. Patient reports: other (denies FRIAS or scotomata), no new complaints, no contractions Objective - Vital Signs Vital Signs: Vital Signs - 12hr 07/10/20 07/10/20 07/10/20 20:09 20:14 20:18 Pulse Rate 81 90 70 Blood Pressure O2 Sat by Pulse 100 100 82 L Oximetry 07/10/20 07/10/20 07/10/20 20:19 20:24 20:29 Pulse Rate 82 80 80 Blood Pressure 140/88 O2 Sat by Pulse 100 99 99 Oximetry 07/10/20 07/10/20 07/10/20 20:34 20:39 20:44 Pulse Rate 82 92 H 95 H Blood Pressure O2 Sat by Pulse 99 99 99 Oximetry 07/10/20 07/10/20 07/10/20 20:49 20:54 20:59 Pulse Rate 75 77 83 Blood Pressure 138/85 O2 Sat by Pulse 99 99 98 Oximetry 07/10/20 07/10/20 07/10/20 21:04 21:09 21:14 Pulse Rate 77 86 72 Blood Pressure O2 Sat by Pulse 99 98 99 Oximetry 07/10/20 07/10/20 07/10/20 21:19 21:24 21:29 Pulse Rate 82 78 80 Blood Pressure 137/85 O2 Sat by Pulse 99 100 100 Oximetry 07/10/20 07/10/20 07/10/20 21:34 21:39 21:44 Pulse Rate 76 77 80 Blood Pressure O2 Sat by Pulse 99 98 98 Oximetry 07/10/20 07/10/20 07/10/20 21:49 21:54 21:59 Pulse Rate 72 78 81 Blood Pressure 134/75 O2 Sat by Pulse 99 99 98 Oximetry 07/10/20 07/10/20 07/10/20 22:04 22:09 22:14 Pulse Rate 80 79 76 Blood Pressure O2 Sat by Pulse 99 100 99 Oximetry 07/10/20 07/10/20 07/10/20 22:19 22:24 22:25 Pulse Rate 73 86 73 Blood Pressure 139/87 O2 Sat by Pulse 100 100 Oximetry 07/10/20 07/10/20 07/10/20 22:29 22:34 22:39 Pulse Rate 74 78 78 Blood Pressure O2 Sat by Pulse 99 98 98 Oximetry 07/10/20 07/10/20 07/10/20 22:44 22:49 22:54 Pulse Rate 78 82 88 Blood Pressure 118/53 O2 Sat by Pulse 98 96 95 Oximetry 07/10/20 07/10/20 07/10/20 22:59 23:04 23:09 Pulse Rate 88 87 89 Blood Pressure O2 Sat by Pulse 96 95 96 Oximetry 07/10/20 07/10/20 07/10/20 23:14 23:18 23:19 Pulse Rate 90 91 H 110 H Blood Pressure O2 Sat by Pulse 95 94 100 Oximetry 07/10/20 07/10/20 07/10/20 23:24 23:29 23:34 Pulse Rate 77 69 69 Blood Pressure O2 Sat by Pulse 99 100 100 Oximetry 07/10/20 07/10/20 07/10/20 23:39 23:44 23:49 Pulse Rate 74 76 80 Blood Pressure O2 Sat by Pulse 100 99 98 Oximetry 07/10/20 07/10/20 07/10/20 23:54 23:55 23:59 Pulse Rate 67 75 76 Blood Pressure 143/89 O2 Sat by Pulse 100 97 Oximetry 07/11/20 07/11/20 07/11/20 00:04 00:09 00:14 Pulse Rate 80 79 85 Blood Pressure O2 Sat by Pulse 98 98 97 Oximetry 07/11/20 07/11/20 07/11/20 00:15 00:19 00:22 Pulse Rate 86 89 102 H Blood Pressure O2 Sat by Pulse 93 96 93 Oximetry 07/11/20 07/11/20 07/11/20 00:24 00:25 00:29 Pulse Rate 89 85 72 Blood Pressure 152/103 O2 Sat by Pulse 100 100 Oximetry 07/11/20 07/11/2020 00:34 00:36 00:39 Pulse Rate 68 78 68 Blood Pressure 150/96 O2 Sat by Pulse 100 100 Oximetry 07/11/20 07/11/20 07/11/20 00:44 00:49 00:54 Pulse Rate 72 72 65 Blood Pressure 152/96 O2 Sat by Pulse 100 100 Oximetry 07/11/20 07/11/20 07/11/20 00:55 01:00 01:05 Pulse Rate 73 80 68 Blood Pressure O2 Sat by Pulse 100 100 99 Oximetry 07/11/20 07/11/20 07/11/20 01:10 01:15 01:20 Pulse Rate 75 80 79 Blood Pressure O2 Sat by Pulse 98 97 100 Oximetry 07/11/20 07/11/20 07/11/20 01:25 01:30 01:35 Pulse Rate 67 72 73 Blood Pressure 153/95 O2 Sat by Pulse 100 100 99 Oximetry 07/11/20 07/11/20 07/11/20 01:40 01:45 01:50 Pulse Rate 69 68 67 Blood Pressure O2 Sat by Pulse 100 99 100 Oximetry 07/11/20 07/11/20 07/11/20 01:55 02:00 02:05 Pulse Rate 70 75 73 Blood Pressure 145/90 O2 Sat by Pulse 100 99 99 Oximetry 07/11/20 07/11/20 07/11/20 02:10 02:15 02:20 Pulse Rate 69 71 78 Blood Pressure O2 Sat by Pulse 100 100 100 Oximetry 07/11/20 07/11/20 07/11/20 02:25 02:33 02:38 Pulse Rate 75 76 71 Blood Pressure 183/97 O2 Sat by Pulse 100 100 100 Oximetry 07/11/20 07/11/20 07/11/20 02:43 02:48 02:53 Pulse Rate 66 67 78 Blood Pressure O2 Sat by Pulse 100 100 100 Oximetry 07/11/20 07/11/20 07/11/20 02:54 02:58 03:03 Pulse Rate 77 75 79 Blood Pressure 131/87 O2 Sat by Pulse 99 99 Oximetry 07/11/20 07/11/20 07/11/20 03:08 03:13 03:18 Pulse Rate 86 86 89 Blood Pressure O2 Sat by Pulse 99 98 98 Oximetry 07/11/20 07/11/20 07/11/20 03:23 03:24 03:28 Pulse Rate 93 H 95 H 94 H Blood Pressure 132/78 O2 Sat by Pulse 97 96 Oximetry 07/11/20 07/11/20 07/11/20 03:33 03:35 03:38 Pulse Rate 91 H 90 90 Blood Pressure O2 Sat by Pulse 96 94 97 Oximetry 07/11/20 07/11/20 07/11/20 03:43 03:44 03:48 Pulse Rate 98 H 98 H 91 H Blood Pressure O2 Sat by Pulse 98 94 97 Oximetry 07/11/20 07/11/20 07/11/20 03:53 03:54 03:58 Pulse Rate 96 H 91 H 89 Blood Pressure 126/81 O2 Sat by Pulse 96 96 Oximetry 07/11/20 07/11/20 07/11/20 04:03 04:08 04:13 Pulse Rate 87 89 86 Blood Pressure O2 Sat by Pulse 97 100 97 Oximetry 07/11/20 07/11/20 07/11/20 04:18 04:23 04:24 Pulse Rate 94 H 84 78 Blood Pressure 138/88 O2 Sat by Pulse 96 99 Oximetry 07/11/20 07/11/20 07/11/20 04:28 04:33 04:38 Pulse Rate 77 87 84 Blood Pressure O2 Sat by Pulse 99 97 96 Oximetry 07/11/20 07/11/20 07/11/20 04:39 04:43 04:48 Pulse Rate 77 76 79 Blood Pressure O2 Sat by Pulse 92 99 97 Oximetry 07/11/20 07/11/20 07/11/20 04:53 04:54 04:58 Pulse Rate 79 77 81 Blood Pressure 135/86 O2 Sat by Pulse 97 98 Oximetry 07/11/20 07/11/20 07/11/20 05:03 05:08 05:11 Pulse Rate 79 77 76 Blood Pressure O2 Sat by Pulse 98 99 93 Oximetry 07/11/20 07/11/20 07/11/20 05:13 05:18 05:20 Pulse Rate 93 H 78 83 Blood Pressure O2 Sat by Pulse 98 99 94 Oximetry 07/11/20 07/11/20 07/11/20 05:23 05:25 05:28 Pulse Rate 73 74 74 Blood Pressure 154/88 O2 Sat by Pulse 98 98 Oximetry 07/11/20 07/11/20 07/11/20 05:33 05:38 05:43 Pulse Rate 74 72 75 Blood Pressure O2 Sat by Pulse 99 99 99 Oximetry 07/11/20 07/11/20 07/11/20 05:48 05:53 05:56 Pulse Rate 72 70 67 Blood Pressure 153/99 O2 Sat by Pulse 100 100 Oximetry 07/11/20 07/11/20 07/11/20 05:58 06:03 06:08 Pulse Rate 76 70 73 Blood Pressure O2 Sat by Pulse 100 100 99 Oximetry 07/11/20 07/11/20 07/11/20 06:13 06:18 06:23 Pulse Rate 75 74 79 Blood Pressure O2 Sat by Pulse 98 98 98 Oximetry 07/11/20 07/11/20 07/11/20 06:24 06:28 06:33 Pulse Rate 81 67 70 Blood Pressure 137/95 O2 Sat by Pulse 100 100 Oximetry 07/11/20 07/11/20 07/11/20 06:38 06:43 06:48 Pulse Rate 72 75 73 Blood Pressure O2 Sat by Pulse 98 98 98 Oximetry 07/11/20 07/11/20 07/11/20 06:53 06:55 06:58 Pulse Rate 77 75 81 Blood Pressure 135/93 O2 Sat by Pulse 98 98 Oximetry 07/11/20 07/11/20 07/11/20 07:03 07:08 07:13 Pulse Rate 77 66 73 Blood Pressure O2 Sat by Pulse 99 100 100 Oximetry 07/11/20 07/11/20 07/11/20 07:14 07:18 07:23 Pulse Rate 75 74 83 Blood Pressure 148/94 O2 Sat by Pulse 98 100 Oximetry 07/11/20 07/11/20 07/11/20 07:24 07:26 07:28 Pulse Rate 75 80 84 Blood Pressure 149/84 O2 Sat by Pulse 94 94 Oximetry 07/11/20 07/11/20 07/11/20 07:33 07:38 07:43 Pulse Rate 85 71 88 Blood Pressure O2 Sat by Pulse 100 100 98 Oximetry 07/11/20 07/11/20 07/11/20 07:48 07:53 07:56 Pulse Rate 77 80 77 Blood Pressure 146/93 O2 Sat by Pulse 100 100 Oximetry 07/11/20 07:58 Pulse Rate 79 Blood Pressure O2 Sat by Pulse 100 Oximetry - Exam Abdomen: Present: soft FHR: category 1 Uterine Contraction Monitor Mode: External Cervical Dilatation: 1 Cervical Effacement Percentage: 10 station: -3 Uterine Contraction Pattern: Absent Extremities: normal - Labs Labs: Abnormal Labs 07/09/20 07/09/20 20:40 20:40 WBC 12.1 H Lactate Dehydrogenase 200 H
[2020-07-11] MEDS: valACYclovir 500 MG TAB PO SCH (09:31)
[2020-07-11] MEDS: fentaNYL 100 MCG/2 ML INJ IV PRN (10:15)
--- NOTE | 2020-07-11 13:21 | Event Note ---
Date: 07/11/20 SVE: 4/50%/-3. Calzada bulb removed with gentle traction. Initiate Pitocin 2x2. Patient coping well. Anticipate .
[2020-07-11] MEDS ORDERED: diphenhydrAMINE 50 MG/ML VIAL IV PRN (13:55)
[2020-07-11] MEDS ORDERED: NalbUPHINE 10 MG/1 ML INJ IV PRN (13:55)
[2020-07-11] MEDS ORDERED: NALOXONE 2 MG/2 ML INJ IV PRN (13:55)
[2020-07-11] MEDS ORDERED: ONDANSETRON 4 MG/2 ML INJ IV PRN ×2 (13:55→17:48)
--- NOTE | 2020-07-11 14:20 | Anesthesia Consultation ---
Anesthesia Consult and Med Hx Date of service: 07/11/20 - Airway Anesthetic Teeth Evaluation: Good ROM Head & Neck: Adequate Mental/Hyoid Distance: Adequate Mallampati Class: Class II Intubation Access Assessment: Probably Good - Pulmonary Exam CTA: Yes - Cardiac Exam Cardiac Exam: RRR - Pre-Operative Health Status ASA Pre-Surgery Classification: ASA2 Proposed Anesthetic Plan: Epidural - Pulmonary Hx Smoking: No Hx Asthma: No COPD: No Hx Pneumonia: No Hx Sleep Apnea: No - Cardiovascular System Hx Hypertension: No Hx Heart Attack/AMI: No Hx Angina: No - Central Nervous System Hx Seizures: No Hx Psychiatric Problems: No - Gastrointestinal Hx Gastroesophageal Reflux Disease: No - Endocrine Hx Renal Disease: No Hx End Stage Renal Disease: No Hx Insulin Dependent Diabetes: No Hx Non-Insulin Dependent Diabetes: No Hx Hypothyroidism: No Hx Hyperthyroidism: No - Hematic Hx Anemia: No Hx Sickle Cell Disease: No - Other Systems Hx Alcohol Use: No
--- NOTE | 2020-07-11 14:21 | Progress Note ---
Labor Epidural - Labor Epidural Start Time: 14:05 Stop Time: 14:20 Performed by:: DAVID BLAND (Maegan RIVAS) Procedure: Patient is requesting a laboring epidural for laboring pain. Patient IDed, H&P reviewed, all questions and concerns were answered, and consent was signed. Timeout was performed at bedside. Patient in sitting position. Sterile prep and drape was performed. 3ml of 1% lidocaine skin wheal at L[3]- L [4]. 18- gauge Touhy epidural needle was advanced to loss of resistance with air technique. Negative CSF negative blood. Epidural catheter advanced to [13] centimeters. [-] Aspiration [-] test dose. Sterile dressing applied. Patient tolerated procedure.
[2020-07-11] MEDS: OXYTOCIN DRIP 30 UNITS/500 ML BAG IV SCH ×2 (14:51→16:02)
[2020-07-11] MEDS ORDERED: fentaNYL-BUPIV 2 MCG/ML-0.125% 200 MCG/100 ML BAG EPIDURAL SCH (15:00)
[2020-07-11] MEDS ORDERED: MAGNESIUM HYDROXIDE (MOM) ORAL LIQD UDC PO PRN (17:48)
[2020-07-11] MEDS ORDERED: LANOLIN/ZINC/DIMETHICONE (LANSINOH) 7 GM TP PRN (17:48)
[2020-07-11] MEDS ORDERED: diphenhydrAMINE 25 MG CAP PO PRN (17:48)
[2020-07-11] MEDS ORDERED: PROMETHAZINE 25 MG TAB PO PRN (17:48)
[2020-07-11] MEDS ORDERED: WITCH HAZEL/ GLYCERIN PAD TP PRN (17:48)
[2020-07-11] MEDS ORDERED: PROMETHAZINE 25 MG RECT SUPP PR PRN (17:48)
--- NOTE | 2020-07-11 17:57 | Procedure Note ---
OB Delivery Note - Delivery Date of Delivery: 07/11/20 Surgeon: ANALISA CEDILLO (Misti Maravilla, [facility]) Estimated blood loss: other (400) - Vaginal Delivery position: OA Intrapartum events: none Delivery induction: other (cervadil, misoprostol, oxytocin) Delivery augmentation: pitocin Delivery monitor: external FHT Route of delivery: Delivery placenta: spontaneous Delivery cord: 3 umbilical vessels Episiotomy: none Delivery laceration: none Anesthesia: epidural Delivery comments: of baby girl over intact perineum at 17:29. No lacerations. Head delivered OA, restituted BELLO, shoulders followed easily, Apgars 8/9. 2442g, 17 3/4 inches. AMTSL, placenta delivered at 17:32. EBL 400 mL, bleeding resolved with fundal massage. Mother and baby bonding well. - A at 1 minute: 8 at 5 minutes: 9 Gender: Female
[2020-07-12] MEDS: IBUPROFEN 600 MG TAB PO SCH ×4 (03:56→17:30)
[2020-07-12 06:41] LABS: Hematocrit 29.4 % (30.3-42.9); Hemoglobin 9.9 gm/dl (10.1-14.3)
--- NOTE | 2020-07-12 08:31 | Progress Note ---
Assessment and Plan A: S/p , PPD1 Chronic HTN, BPs mild range in L&D and PP Asymptomatic for preeclampsia Acute anemia due to blood loss Bottle feeding P: Continue labetalol 100mg BID Ferrous sulfate supplementation Discharge to home today Subjective - Subjective Date of service: 07/12/20 Principal diagnosis: S/p Interval history: S/p , PPD1 Patient reports: appetite normal, voiding normally, pain well controlled, flatus, ambulating normally, no bowel movement [place]: doing well, bottle feeding Objective - Vital Signs Latest vital signs: Vital Signs Temp Pulse Resp BP BP Pulse Ox 07/12/20 06:51 98.0 F 68 18 137/84 100 07/12/20 03:56 18 07/12/20 00:54 98.3 F 82 20 126/82 98 07/11/20 22:46 91 H 143/83 07/11/20 19:25 101 H 20 139/86 139/86 100 07/11/20 19:09 101 H 100 07/11/20 19:04 114 H 100 07/11/20 18:59 101 H 99 07/11/20 18:54 112 H 100 07/11/20 18:49 103 H 99 07/11/20 18:48 111 H 106/55 07/11/20 18:44 104 H 100 07/11/20 18:39 105 H 99 07/11/20 18:34 110 H 99 07/11/20 18:33 105 H 139/63 07/11/20 18:29 100 H 100 07/11/20 18:24 101 H 99 07/11/20 18:19 111 H 100 07/11/20 18:18 109 H 139/63 07/11/20 18:14 103 H 99 07/11/20 18:09 102 H 99 07/11/20 18:04 117 H 99 07/11/20 18:03 100 H 126/63 07/11/20 17:59 115 H 100 07/11/20 17:54 109 H 100 07/11/20 17:49 107 H 99 07/11/20 17:48 107 H 120/69 07/11/20 17:44 112 H 100 07/11/20 17:39 106 H 100 07/11/20 17:35 97 H 153/79 07/11/20 17:34 79 100 07/11/20 17:33 104 H 136/103 07/11/20 17:29 103 H 100 07/11/20 17:24 71 96 07/11/20 17:19 95 H 100 07/11/20 17:14 94 H 100 07/11/20 17:09 96 H 100 07/11/20 17:04 101 H 100 07/11/20 17:03 78 L 07/11/20 17:00 111 H 146/74 07/11/20 16:59 79 85 07/11/20 16:54 130 H 100 07/11/20 16:53 128 H 84 07/11/20 16:49 117 H 100 07/11/20 16:44 122 H 100 07/11/20 16:39 119 H 98 07/11/20 16:34 100 H 99 07/11/20 16:29 101 H 129/71 97 07/11/20 16:24 96 H 100 07/11/20 16:19 93 H 100 07/11/20 16:14 108 H 99 07/11/20 16:09 94 H 100 07/11/20 16:04 89 100 07/11/20 15:59 92 H 100 07/11/20 15:58 94 H 112/63 07/11/20 15:56 88 116/64 07/11/20 15:54 86 114/65 100 07/11/20 15:52 85 116/67 07/11/20 15:50 89 114/64 07/11/20 15:49 90 100 07/11/20 15:48 100 H 113/57 07/11/20 15:46 80 115/68 07/11/20 15:44 86 108/64 98 07/11/20 15:42 86 108/66 07/11/20 15:40 81 105/56 07/11/20 15:39 85 98 07/11/20 15:38 85 107/58 07/11/20 15:36 83 106/62 07/11/20 15:34 85 108/57 99 07/11/20 15:32 85 109/63 07/11/20 15:30 85 106/55 07/11/20 15:29 87 100 07/11/20 15:28 85 112/60 07/11/20 15:26 90 113/64 07/11/20 15:24 98.0 F 85 18 109/58 109/58 100 07/11/20 15:22 85 109/59 07/11/20 15:20 86 113/61 07/11/20 15:19 87 100 07/11/20 15:18 96 H 114/59 07/11/20 15:16 93 H 109/64 07/11/20 15:14 87 115/61 99 07/11/20 15:12 93 H 108/61 07/11/20 15:09 89 114/57 99 07/11/20 15:06 96 H 114/61 07/11/20 15:04 101 H 109/65 100 07/11/20 15:03 102 H 94 07/11/20 15:02 96 H 112/64 07/11/20 15:00 88 112/57 07/11/20 14:59 91 H 99 07/11/20 14:58 84 120/64 07/11/20 14:56 88 123/71 07/11/20 14:54 90 125/73 100 07/11/20 14:52 86 124/71 07/11/20 14:50 88 122/65 07/11/20 14:49 91 H 99 07/11/20 14:48 86 120/66 07/11/20 14:45 87 114/66 07/11/20 14:44 88 100 07/11/20 14:39 80 96 07/11/20 14:36 94 H 83 L 07/11/20 14:34 88 144/91 98 07/11/20 14:32 89 140/84 07/11/20 14:30 88 143/89 07/11/20 14:29 93 H 99 07/11/20 14:28 97 H 152/94 07/11/20 14:26 97 H 154/95 07/11/20 14:24 96 H 155/94 100 07/11/20 14:22 90 161/92 07/11/20 14:20 93 H 148/88 07/11/20 14:19 92 H 100 07/11/20 14:18 91 H 154/114 07/11/20 14:16 90 159/86 07/11/20 14:14 91 H 157/84 100 07/11/20 14:12 96 H 153/78 07/11/20 14:10 92 H 160/84 07/11/20 14:09 90 100 07/11/20 14:08 90 163/94 07/11/20 14:05 92 H 141/100 07/11/20 13:32 83 150/89 07/11/20 13:30 89 96 07/11/20 13:25 90 147/102 100 07/11/20 13:06 89 100 07/11/20 12:55 83 98 07/11/20 12:54 76 142/93 07/11/20 12:50 93 H 98 07/11/20 12:45 86 99 07/11/20 12:40 85 96 07/11/20 12:35 85 95 07/11/20 12:30 85 95 07/11/20 12:29 85 91 07/11/20 12:25 82 155/91 94 07/11/20 12:23 89 92 07/11/20 12:20 82 98 07/11/20 12:15 83 98 07/11/20 12:13 89 90 07/11/20 12:10 81 18 98 07/11/20 12:05 89 99 07/11/20 12:00 81 99 07/11/20 11:55 80 100 07/11/20 11:54 75 142/94 07/11/20 11:52 98.0 F 79 18 141/91 141/91 100 07/11/20 11:50 93 H 99 07/11/20 11:45 90 99 07/11/20 11:42 97 H 82 L 07/11/20 11:40 84 99 07/11/20 11:35 93 H 99 07/11/20 11:30 88 99 07/11/20 11:25 82 96 07/11/20 11:24 75 133/79 07/11/20 11:20 89 100 07/11/20 11:15 85 18 96 07/11/20 11:10 89 100 07/11/20 11:05 80 97 07/11/20 11:00 85 96 07/11/20 10:55 82 133/82 96 07/11/20 10:50 89 95 07/11/20 10:48 83 94 07/11/20 10:45 82 95 07/11/20 10:42 81 94 07/11/20 10:40 87 96 07/11/20 10:36 78 94 07/11/20 10:35 77 96 07/11/20 10:30 82 97 07/11/20 10:28 88 94 07/11/20 10:25 84 135/83 96 07/11/20 10:20 89 94 07/11/20 10:15 88 18 99 07/11/20 10:10 81 100 07/11/20 10:05 80 99 07/11/20 10:00 79 100 07/11/20 09:55 77 151/92 100 07/11/20 09:50 82 100 07/11/20 09:45 81 100 07/11/20 09:40 79 100 07/11/20 09:35 73 100 07/11/20 09:31 91 H 158/94 07/11/20 09:30 87 158/94 100 07/11/20 09:25 78 169/105 100 07/11/20 09:20 78 100 07/11/20 09:15 87 99 07/11/20 09:10 89 99 07/11/20 09:05 86 100 07/11/20 09:00 97 H 98 07/11/20 08:48 78 99 07/11/20 08:43 85 99 07/11/20 08:38 78 99 07/11/20 08:33 81 99 Intake and Output 07/11/20 07/12/20 07/12/20 23:59 07:59 15:59 Intake Total 2.367 240 Output Total 500 700 Balance -497.633 -460 Intake: IV 2.367 PITOCin/NS 30 UNIT/500ML 2.367 30 units In 500 ml @ 2 mls/hr IV TITR MARIA L Rx#: [id number] Intake, Free Water 240 Output: Urine 500 700 Indwelling Catheter 500 Void 700 Other: Total, Output Amount 500 700 # Voids Void 1 2 Estimated Blood Loss 400 - Exam Lungs: Present: Normal air movement Abdomen: Present: normal appearance, soft. Absent: distention, tenderness Uterus: Present: normal, firm, fundal height below umbilicus. Absent: bogginess, tenderness Extremities: Present: normal - Labs Labs: Abnormal lab results 07/12/20 Range/Units 04:50 Hgb 9.9 L (10.1-14.3) gm/dl Hct 29.4 L (30.3-42.9) %
--- NOTE | 2020-07-12 08:33 | Discharge Summary ---
Providers - Providers Date of Admission: 07/10/20 09:37 Date of discharge: 07/12/20 Attending physician: MARTHA WINN Primary care physician: MARTHA WINN Hospitalization Reason for admission: induction of labor (IOL d/t chronic HTN), IUP at term Delivery: Episiotomy: none Laceration: none Other procedures: none complications: none Discharge diagnosis: IUP at term delivered Ideal baby: female Condition at discharge: Good Disposition: DC-01 TO HOME OR SELFCARE Plan - Discharge Medications Prescriptions: Ferrous Sulfate [Feosol 325 MG tab] 325 mg PO BID #60 tablet labetaloL [Labetalol 100mg TAB] 100 mg PO BID #60 tablet Ibuprofen [Motrin] 600 mg PO Q6H PRN #60 tablet PRN Reason: Pain - Provider Discharge Summary Activity: routine, no sex for 6 weeks, no heavy lifting 4 weeks, no strenuous exercise Diet: routine Additional instructions: [] Smoking cessation referral if applicable(refer to patient education folder for contact #) [] Refer to [facility] Booklet Call your doctor immediately for: * Fever > 100.5 * Heavy vaginal bleeding ( >1 pad per hour) * Severe persistent headache * Shortness of breath * Reddened, hot, painful area to leg or breast * Drainage or odor from incision. * Keep incision clean and dry at all times and follow doctor's instructions regarding bathing/showering - Follow up plan Follow up: ANALISA CEDILLO CNM [Advanced Practice Nurse] - 7 Days (Call [facility] to schedule appt in 1 week)
--- NOTE | 2020-07-12 10:16 | Post Anesthesia Evaluation ---
- Post Anesthesia Evaluation Patient Participated: Yes Airway Patent: Yes Stable Respiratory Function: Yes Nausea/Vomiting: No Temp > 96.8F: Yes Pain Manageable: Yes Adequeate Hydration: Yes Anesthesia Complications: No Block Receding Appropriately: Yes Patient on Ventilator: No
[2020-07-12] MEDS ORDERED: medroxyPROGESTERone ACETATE 150 MG/ML SYRINGE IM ONE (13:54)
[2020-07-12 18:02] VITALS: BP 140/95
== END 2020-07-12 21:58 | disposition home or self-care (01) | DRG 774 ==
LOC: UNDOADMIN 19:36 → LD 19:36 → OB 07-11 20:24
PROVIDERS: ADMIT Obstetrics & Gynecology; ATTEND Obstetrics & Gynecology
PROC: 3E0P7VZ Introduction of Hormone into Female Reproductive, Via Natural or Artificial Opening (ICD-10-PCS; principal; 2020-07-10)
PROC: 0U7C7ZZ Dilation of Cervix, Via Natural or Artificial Opening (ICD-10-PCS; 2020-07-10)
PROC: 3E0R3BZ Introduction of Anesthetic Agent into Spinal Canal, Percutaneous Approach (ICD-10-PCS; 2020-07-11)
PROC: 00HU33Z Insertion of Infusion Device into Spinal Canal, Percutaneous Approach (ICD-10-PCS; 2020-07-11)
PROC: 10E0XZZ Delivery of Products of Conception, External Approach (ICD-10-PCS; 2020-07-11)
DX: O10.92 Unspecified pre-existing hypertension complicating childbirth (principal); O98.52 Other viral diseases complicating childbirth; Z37.0 Single live birth; B00.9 Herpesviral infection, unspecified; D62 Acute posthemorrhagic anemia; A60.00 Herpesviral infection of urogenital system, unspecified; O90.81 Anemia of the puerperium; Z3A.37 37 weeks gestation of pregnancy; Z83.3 Family history of diabetes mellitus; Z82.49 Family history of ischemic heart disease and other diseases of the circulatory system; Z20.828 Contact with and (suspected) exposure to other viral communicable diseases
CPT/HCPCS: 36415; 59200; 82565; 83615; 84450; 84460; 84550; 85014; 85018; 85027; 86592; 86850; 86900; 86901; G0378; J0595; J1050; J2590; J3010; J7120; U0003